=== PATIENT | female | born 1995 | race Caucasian/White ===

== ENCOUNTER 2017-11-20 11:09 | Inpatient (IN) ==
[2017-11-20] MEDS ORDERED: ceFAZolin 2,000 MG in PREMIX 1 EACH IV ONE (11:20)
[2017-11-20] MEDS ORDERED: FAMOTIDINE 20 MG/2 ML VIAL IV ONE (11:20)
[2017-11-20] MEDS ORDERED: CITRIC ACID/SODIUM CITRATE 30 ML UDCUP PO ONE (11:20)
[2017-11-20] MEDS ORDERED: OXYTOCIN 10 UNIT/ML VIAL IM ONE (11:26)
[2017-11-20 11:49] LABS: Basophils % 0.2 % (0.0-0.8); Eosinophils # 0.1 10*3/uL (0.0-0.87); Eosinophils % 0.7 % (0.00-10.9); Hematocrit 38.3 VOL% (35.7-47.0); Hemoglobin 12.3 GM/DL (12.0-16.0); Lymphocytes # 1.6 10*3/uL (1.4-4.0); Lymphocytes % 15.8 % (21.3-54.2); Mean Corpuscular HGB Conc 32.1 GM/DL (32-36); Mean Corpuscular Hemoglobin 29 PG (27-34); Mean Corpuscular Volume 89.5 FL (87-102); Mean Platelet Volume 11.1 FL (9.6-12.0); Monocytes # 0.6 10*3/uL (0.11-0.8); Monocytes % 6.2 % (1.7-12.7); Neutrophils # 7.4 10*3/uL (1.4-7.4); Neutrophils % 76.1 % (38.7-73.9); Platelet Count 180 T/CUMM (130-400); Red Blood Count 4.28 MC/CUMM (3.8-5.5); Red Cell Distribution Width 15.3 % (9.3-17.3); White Blood Count 9.8 T/CUMM (4-12)
[2017-11-20 12:26] LABS: Alanine Aminotransferase 10 U/L (13-56); Albumin 2.8 G/DL (3.4-5.0); Alkaline Phosphatase 117 U/L (45-117); Aspartate Amino Transferase 12 U/L (0-37); Bilirubin,Total < 0.39 MG/DL (0.2-1.0); Blood Urea Nitrogen 9 MG/DL (7-18); Calcium 9.3 MG/DL (8.5-10.1); Glucose 121 MG/DL (74-106); Osmolality,Calculated 272.8 MOS/KG (273-304); Potassium 4.2 MMOL/L (3.5-5.1); Sodium 137 MMOL/L (136-145); Total Protein 6.4 G/DL (6.4-8.3)
[2017-11-20] MEDS: LACTATED RINGERS 1,000 ML IV SCH ×2 (13:25→14:38)
[2017-11-20] MEDS ORDERED: BUPIVACAINE SPINAL 0.75% 2 ML AMP SPINAL ONE (14:49)
[2017-11-20] MEDS ORDERED: MORPHINE 10 MG/10 ML VIAL ONE (14:51)
[2017-11-20 15:48] LABS: Apearance,Urine CLEAR (Clear); Bacteria,Urine Occasional /HPF (Few); Bilirubin,Urine Negative (Negative); Blood, Urine Negative (Negative); Glucose,Urine (UA) 50 mg/dL (Negative); Ketones,Urine 20 mg/dL (Negative); Mucus,Urine Occasional /LPF (Occasional); Nitrite,Urine Negative (Negative); Protein,Urine Negative; RBC,Urine <1 /HPF (0-4); Squamous Epithelial Cell,Urine Occasional /HPF (0-10); Urine Color Yellow (Yellow); Urine Specific Gravity 1.009 (1.001-1.035); Urine Urobilinogen < 2.0 EU/DL (0.2-1.0); WBC,Urine <1 /HPF (0-6)
[2017-11-20] MEDS ORDERED: OXYTOCIN/LR 30 UNIT/1,000 ML BAG IV ONE (16:00)
[2017-11-20 16:06] LABS: Cord Arterial Blood HCO3 24.3 MMOL/L
[2017-11-20 16:08] LABS: Cord Venous Blood HCO3 14.9 MMOL/L; Cord Venous Blood PCO2 80.8 MMHG; Cord Venous Blood PO2 13.8
[2017-11-20] MEDS ORDERED: GLUCAGON 1 MG VIAL IM PRN ×2 (16:39→20:15)
[2017-11-20] MEDS ORDERED: DEXTROSE 50% 25 GM/50 ML VIAL IV PRN ×2 (16:39→20:15)
[2017-11-20] MEDS: INSULIN LISPRO 100 UNIT/ML SUBCUT SCH (17:34)
[2017-11-20] MEDS: INSULIN REGULAR 100 UNIT/ML SUBCUT SCH ×2 (17:37→22:42)
[2017-11-20] MEDS ORDERED: ONDANSETRON 4 MG/2 ML VIAL ONE (18:27)
[2017-11-20] MEDS ORDERED: ONDANSETRON 4 MG/2 ML VIAL IV PRN ×2 (18:27→20:15)
[2017-11-20] MEDS ORDERED: diphenhydrAMINE 50 MG/1 ML VIAL ONE (18:44)
[2017-11-20] MEDS: diphenhydrAMINE 50 MG/1 ML VIAL IV PRN (18:48)
[2017-11-20] MEDS ORDERED: OXYTOCIN/LR 20 UNIT/1,000 ML BAG IV ONE ×2 (19:57→20:15)
[2017-11-20] MEDS ORDERED: ACETAMINOPHEN 325 MG TABLET PO PRN (20:15)
[2017-11-20] MEDS ORDERED: LACTATED RINGERS 1,000 ML IV SCH (20:15)
[2017-11-20] MEDS ORDERED: MAGNESIUM HYDROXIDE SUSP 30 ML UDCUP PO PRN (20:15)
[2017-11-20] MEDS ORDERED: SIMETHICONE CHEW 80 MG TABLET PO PRN (20:15)
[2017-11-20] MEDS ORDERED: RHO(D) IMMUNE GLOBULIN 300 MCG SYRINGE IM ONE (20:15)
[2017-11-20] MEDS ORDERED: HYDROmorphone 2 MG/1 ML VIAL IV PRN (20:30)
[2017-11-20] MEDS ORDERED: ONDANSETRON 4 MG/2 ML VIAL IV ONE (20:32)
[2017-11-20] MEDS: DOCUSATE SODIUM 100 MG CAPSULE PO SCH (21:00)
[2017-11-20] MEDS: INSULIN GLARGINE 100 UNIT/ML SUBCUT SCH (22:42)
[2017-11-21 00:22] LABS: Basophils % 0.3 % (0.0-0.8); Eosinophils % 0.2 % (0.00-10.9); Hematocrit 36.4 VOL% (35.7-47.0); Hemoglobin 11.6 GM/DL (12.0-16.0); Immature Granulocytes % 0.7 %; Lymphocytes # 1.6 10*3/uL (1.4-4.0); Lymphocytes % 11.5 % (21.3-54.2); Mean Corpuscular HGB Conc 31.9 GM/DL (32-36); Mean Corpuscular Hemoglobin 29 PG (27-34); Mean Corpuscular Volume 90.1 FL (87-102); Mean Platelet Volume 11.1 FL (9.6-12.0); Monocytes # 0.7 10*3/uL (0.11-0.8); Monocytes % 5.1 % (1.7-12.7); Neutrophils # 11.5 10*3/uL (1.4-7.4); Neutrophils % 82.2 % (38.7-73.9); Platelet Count 170 T/CUMM (130-400); Red Blood Count 4.04 MC/CUMM (3.8-5.5); Red Cell Distribution Width 15.4 % (9.3-17.3)
[2017-11-21] MEDS: INSULIN REGULAR 100 UNIT/ML SUBCUT SCH ×4 (04:01→21:08)
[2017-11-21 04:04] LABS: Basophils % 0.3 % (0.0-0.8); Eosinophils # 0.1 10*3/uL (0.0-0.87); Eosinophils % 0.5 % (0.00-10.9); Hematocrit 33.7 VOL% (35.7-47.0); Hemoglobin 10.8 GM/DL (12.0-16.0); Immature Granulocytes % 0.8 %; Lymphocytes # 1.7 10*3/uL (1.4-4.0); Lymphocytes % 12.9 % (21.3-54.2); Mean Corpuscular Hemoglobin 29 PG (27-34); Mean Corpuscular Volume 89.4 FL (87-102); Mean Platelet Volume 11.1 FL (9.6-12.0); Monocytes # 0.7 10*3/uL (0.11-0.8); Monocytes % 5.3 % (1.7-12.7); Neutrophils # 10.5 10*3/uL (1.4-7.4); Neutrophils % 80.2 % (38.7-73.9); Platelet Count 153 T/CUMM (130-400); Red Blood Count 3.77 MC/CUMM (3.8-5.5); Red Cell Distribution Width 15.2 % (9.3-17.3); White Blood Count 13.1 T/CUMM (4-12)
[2017-11-21] MEDS: diphenhydrAMINE 50 MG/1 ML VIAL IV PRN (06:29)
[2017-11-21] MEDS: INSULIN LISPRO 100 UNIT/ML SUBCUT SCH ×3 (08:02→16:57)
[2017-11-21] MEDS: DOCUSATE SODIUM 100 MG CAPSULE PO SCH ×2 (08:05→20:51)
[2017-11-21] MEDS: MULTIVITAMIN (PRENATAL) TABLET PO SCH (08:05)
[2017-11-21] MEDS: IBUPROFEN 800 MG TABLET PO PRN (10:23)
[2017-11-21] MEDS ORDERED: FUROSEMIDE 40 MG TABLET PO SCH (16:00)
[2017-11-21] MEDS: INSULIN GLARGINE 100 UNIT/ML SUBCUT SCH (21:30)
[2017-11-21] MEDS: FUROSEMIDE 40 MG TABLET PO SCH (21:31)
[2017-11-21] MEDS ORDERED: BISACODYL 10 MG SUPP RECTAL PRN (23:25)
[2017-11-22] MEDS: IBUPROFEN 800 MG TABLET PO PRN (01:23)
[2017-11-22] MEDS: FUROSEMIDE 40 MG TABLET PO SCH (03:49)
[2017-11-22 07:36] VITALS: BP 104/64
[2017-11-22] MEDS: MULTIVITAMIN (PRENATAL) TABLET PO SCH (08:26)
[2017-11-22] MEDS: DOCUSATE SODIUM 100 MG CAPSULE PO SCH (08:26)
[2017-11-22] MEDS: INSULIN REGULAR 100 UNIT/ML SUBCUT SCH (08:29)
[2017-11-22] MEDS: INSULIN LISPRO 100 UNIT/ML SUBCUT SCH (08:29)
[2017-11-22] MEDS ORDERED: INFLUENZA VIRUS VACCINE 0.5 ML SYRINGE IM ONE (11:02)
== END 2017-11-22 12:50 | disposition home or self-care (01) | DRG 765 ==
LOC: N.LDOUT 11:09 → N.LD 11:11 → N.OB 20:28
PROVIDERS: ADMIT Obstetrics & Gynecology; ATTEND Obstetrics & Gynecology
PROC: LDCSECT (ICD-10-PCS; 2017-11-20 16:00)